=== PATIENT | female | born 1950 | race Caucasian/White ===

== ENCOUNTER 2016-11-19 11:43 | Day surgery (SDC) | payer MEDICARE, BC ==
[2016-11-19] MEDS ORDERED: LIDOCAINE HCL 1% MPF SOL ONE (12:31)
[2016-11-19] MEDS ORDERED: PROPOFOL 10 MG/ML EMU IV ONE (12:31)
[2016-11-19] MEDS ORDERED: FENTANYL CITRATE 50 MCG/ML SOL ONE (12:31)
[2016-11-19] MEDS ORDERED: CLINDAMYCIN 150 MG/ML SOL ONE (12:46)
[2016-11-19] MEDS ORDERED: MORPHINE SULFATE 10 MG/ML SOL ONE (13:12)
[2016-11-19 14:01] VITALS: TEMP 97.6
[2016-11-19] MEDS ORDERED: KETOROLAC TROMETHAMINE 30 MG/ML SOL ONE (14:14)
[2016-11-19 15:12] VITALS: BP 121/78; PULSE 65; RESP 20; O2SAT 95
== END 2016-11-19 16:10 | disposition home or self-care (01) | DRG 563 ==
LOC: SURG 11:43
PROVIDERS: ATTEND Orthopaedic Surgery
DX: S83.242A Other tear of medial meniscus, current injury, left knee, initial encounter (principal); M71.22 Synovial cyst of popliteal space [Baker], left knee; M94.262 Chondromalacia, left knee
CPT/HCPCS: J1885; J2270; J3010; S0077; J2001; J2704

== ENCOUNTER 2017-01-13 10:02 | Outpatient (CLI) | payer MEDICARE, BC ==
[2016-11-19 15:12] VITALS: O2SAT 95
== END 2017-01-13 10:03 | disposition home or self-care (01) | DRG 556 ==
LOC: CONVCARE 10:02
PROVIDERS: ATTEND Orthopaedic Surgery
DX: M25.562 Pain in left knee (principal); M23.42 Loose body in knee, left knee
CPT/HCPCS: 73560

== ENCOUNTER 2018-05-18 14:28 | Outpatient (CLI) | payer MEDICARE, BC ==
[2016-11-19 15:12] VITALS: O2SAT 95
[2018-05-18 22:32] LABS: *RHEUMATOID FACTOR <10 IUnits/mL (<30)
[2018-05-20 07:05] LABS: *ANA SCREEN 6.5 U
[2018-05-20 10:23] LABS: *LYME DISEASE SCREEN Negative (Negative)
== END 2018-05-18 14:29 | disposition home or self-care (01) | DRG 558 ==
LOC: CONVCARE 14:28
PROVIDERS: ATTEND Orthopaedic Surgery
DX: M75.42 Impingement syndrome of left shoulder (principal); M13.812 Other specified arthritis, left shoulder
CPT/HCPCS: 36415; 73030; 85651

== ENCOUNTER 2019-03-01 12:58 | Outpatient (CLI) | payer OTHER ==
[2016-11-19 15:12] VITALS: O2SAT 95
== END 2019-03-01 12:59 | disposition home or self-care (01) | DRG 561 ==
LOC: CONVCARE 12:58
PROVIDERS: ATTEND Orthopaedic Surgery
DX: Z47.89 Encounter for other orthopedic aftercare (principal); Z98.890 Other specified postprocedural states
CPT/HCPCS: 73030

== ENCOUNTER 2019-03-23 11:50 | Day surgery (SDC) | payer OTHER ==
[~2019-03-23 11:50] MED LIST: CYCLOPENTOLATE 1% SOL LEFTEYE ONE; KETOROLAC/HOME 0.5% SOL LEFTEYE ONE; MIDAZOLAM 2 MG/2 ML SOL ONE; MOXIFLOXACIN-HOME SOL LEFTEYE ONE; PHENYLEPHRINE HCL 10% OPHTHAL SOL LEFTEYE ONE; TROPICAMIDE 1% OPHTH SOL LEFTEYE ONE
[2019-03-23 11:51] VITALS: RESP 20
[2019-03-23] MEDS ORDERED: KETOROLAC/HOME 0.5% SOL LEFTEYE ONE (11:51)
[2019-03-23] MEDS ORDERED: TROPICAMIDE 1% OPHTH SOL LEFTEYE ONE (11:51)
[2019-03-23] MEDS: TETRACAINE HCL 0.5 % 1 DROP SOL LEFTEYE ONE ×2 (11:52→12:54)
[2019-03-23] MEDS ORDERED: POVIDONE IODINE 5% SOL ONE (12:47)
[2019-03-23] MEDS ORDERED: LIDOCAINE HCL 2% MPF 10 ML SOL ONE (12:47)
[2019-03-23] MEDS ORDERED: BSS W/ 0.5 MG P.F. EPI 1 BOTTLE ONE (12:47)
[2019-03-23 13:26] VITALS: BP 129/75; PULSE 68; TEMP 97.6; O2SAT 92
[2019-03-23] MEDS ORDERED: ACETAZOLAMIDE 250 MG PO ONE (13:27)
[2019-03-23] MEDS ORDERED: ACETAZOLAMIDE 500 MG CER PO ONE (13:29)
== END 2019-03-23 13:43 | disposition home or self-care (01) | DRG 125 ==
LOC: SURG 11:50
PROVIDERS: ATTEND Ophthalmology
DX: H25.89 Other age-related cataract (principal)
CPT/HCPCS: J2250; A9270-GY

== ENCOUNTER 2019-04-06 11:31 | Day surgery (SDC) | payer OTHER ==
[~2019-04-06 11:31] MED LIST changes: -CYCLOPENTOLATE 1% SOL LEFTEYE ONE; +CYCLOPENTOLATE 1% SOL ONE; -KETOROLAC/HOME 0.5% SOL LEFTEYE ONE; -MIDAZOLAM 2 MG/2 ML SOL ONE; -MOXIFLOXACIN-HOME SOL LEFTEYE ONE; -PHENYLEPHRINE HCL 10% OPHTHAL SOL LEFTEYE ONE; +PHENYLEPHRINE HCL 10% OPHTHAL SOL ONE; +TETRACAINE HCL 0.5 % 1 DROP SOL ONE; -TROPICAMIDE 1% OPHTH SOL LEFTEYE ONE; +TROPICAMIDE 1% OPHTH SOL ONE
[2019-04-06] MEDS: PHENYLEPHRINE HCL 10% OPHTHAL SOL ONE ×3 (12:26→12:31)
[2019-04-06] MEDS: CYCLOPENTOLATE 1% SOL ONE ×3 (12:26→12:31)
[2019-04-06] MEDS ORDERED: MOXIFLOXACIN-HOME SOL RIGHTEYE ONE ×2 (12:27→12:29)
[2019-04-06] MEDS: TROPICAMIDE 1% OPHTH SOL ONE ×3 (12:27→12:31)
[2019-04-06] MEDS ORDERED: KETOROLAC/HOME 0.5% SOL RIGHTEYE ONE ×3 (12:27→12:31)
[2019-04-06] MEDS: TETRACAINE HCL 0.5 % 1 DROP SOL ONE ×2 (12:31→13:33)
[2019-04-06 12:37] VITALS: RESP 18
[2019-04-06] MEDS ORDERED: POVIDONE IODINE 5% SOL ONE (12:55)
[2019-04-06] MEDS ORDERED: BSS W/ 0.5 MG P.F. EPI 1 BOTTLE ONE (12:55)
[2019-04-06] MEDS: LIDOCAINE HCL 2% MPF 10 ML SOL ONE ×2 (13:36→13:37)
[2019-04-06] MEDS ORDERED: ACETAZOLAMIDE 250 MG PO ONE (13:38)
[2019-04-06 13:55] VITALS: PULSE 72; TEMP 97.5; O2SAT 95
[2019-04-06 14:04] VITALS: BP 146/93
== END 2019-04-06 14:14 | disposition home or self-care (01) | DRG 125 ==
LOC: SURG 11:31
PROVIDERS: ATTEND Ophthalmology
DX: H25.89 Other age-related cataract (principal)
CPT/HCPCS: A9270-GY

== ENCOUNTER 2019-06-07 13:01 | Outpatient (CLI) | payer OTHER ==
[2019-04-06 13:55] VITALS: O2SAT 95
== END 2019-06-07 13:02 | disposition home or self-care (01) | DRG 561 ==
LOC: CONVCARE 13:01
PROVIDERS: ATTEND Orthopaedic Surgery
DX: Z47.1 Aftercare following joint replacement surgery (principal); Z96.612 Presence of left artificial shoulder joint
CPT/HCPCS: 73030; 73562